=== PATIENT | female | born 1975 | race Native Hawaiian/Other Pacific Islander ===

== ENCOUNTER 2019-06-04 13:01 | Outpatient (CLI) | payer OTHER | END 2019-06-04 22:42 | disposition home or self-care (01) | LOC: LAB 13:01 | DX: D64.89 Other specified anemias (principal) | CPT/HCPCS: 85014; 85018 ==

== ENCOUNTER 2019-06-11 14:34 | Outpatient (CLI) | payer OTHER | END 2019-06-11 19:48 | disposition home or self-care (01) | LOC: LAB 14:34 | DX: D64.89 Other specified anemias (principal) | CPT/HCPCS: 85018 ==

== ENCOUNTER 2019-09-04 14:46 | Outpatient (CLI) | payer OTHER ==
[2019-09-04 16:16] LABS: PLATELET COUNT 186 K/uL (152-353)
== END 2019-09-04 21:49 | disposition home or self-care (01) ==
LOC: LAB 14:46
PROVIDERS: Internal Medicine Nephrology
DX: R19.7 Diarrhea, unspecified (principal)
CPT/HCPCS: 85027

== ENCOUNTER 2020-03-30 15:33 | Outpatient (CLI) | payer OTHER | END 2020-03-30 23:59 | disposition home or self-care (01) | LOC: LAB 15:33 | PROVIDERS: ATTEND Internal Medicine Nephrology | DX: E87.5 Hyperkalemia (principal) | CPT/HCPCS: 84132 ==

== ENCOUNTER 2020-05-23 15:02 | Outpatient (CLI) | payer OTHER | END 2020-05-23 19:27 | disposition home or self-care (01) | LOC: RAD 15:02 | PROVIDERS: ATTEND Orthopaedic Surgery | DX: M25.531 Pain in right wrist (principal) ==

== ENCOUNTER 2020-08-15 15:40 | Outpatient (CLI) | payer OTHER | END 2020-08-15 20:53 | disposition home or self-care (01) | LOC: LAB 15:40 | PROVIDERS: ATTEND Internal Medicine Nephrology | DX: D64.89 Other specified anemias (principal) | CPT/HCPCS: 85014; 85018 ==

== ENCOUNTER 2020-09-09 14:40 | Outpatient (CLI) | payer OTHER | END 2020-09-09 21:57 | disposition home or self-care (01) | LOC: LAB 14:40 | PROVIDERS: ATTEND Internal Medicine Nephrology | DX: D64.89 Other specified anemias (principal) | CPT/HCPCS: 85014; 85018 ==

== ENCOUNTER 2021-01-02 12:15 | Emergency (ER) | payer OTHER ==
[~2021-01-02] VITALS: Ht 167.6 cm; Wt 104.3 kg
[2021-01-02 13:00] VITALS: TEMP 98.3
[2021-01-02 14:31] LABS: PLATELET COUNT 213 K/uL (152-353)
[2021-01-02 14:45] LABS: POTASSIUM 3.8 mmol/L (3.6-5.2)
[2021-01-02 17:40] VITALS: BP 128/86
== END 2021-01-02 17:40 | disposition home or self-care (01) ==
LOC: ED 12:15
PROVIDERS: Emergency Medicine Emergency Medical Services
DX: N23 Unspecified renal colic (principal); N20.0 Calculus of kidney
CPT/HCPCS: 36415; 80053; 82150; 83690; 85027; 96360; 96361; 96375; 99284; J2270; J2405